=== PATIENT | male | born 1955 | race Caucasian/White ===

== ENCOUNTER 2020-01-09 23:33 | Emergency (ER) | payer OTHER ==
[2020-01-10 00:19] LABS: Absolute Lymphocytes (CBC) 2.1 K/uL (0.7-4.9); Basophils % 0.3 % (0-1.3); Hematocrit 44.9 % (39.6-49.0); Lymphocytes % 30.6 % (15.3-44.8); MPV 8.6 fL (7.6-11.3)
[2020-01-10 00:20] LABS: Protime INR 0.89
[2020-01-10 00:33] LABS: ALT/SGPT 54 U/L (12-78); AST/SGOT 25 U/L (15-37); Albumin 4.1 g/dL (3.4-5.0); Alkaline Phosphatase 109 U/L (45-117); BUN Blood Urea Nitrogen 18 mg/dL (7-18); Bicarbonate 29 mmol/L (21-32); Bilirubin Direct 0.1 mg/dL (0-0.2); Bilirubin Total 0.4 mg/dL (0.2-1.0); Glucose Level 145 mg/dL (74-106); Magnesium 2.1 mg/dL (1.8-2.4); NT PRO-BNP 38 pg/mL (<125); Potassium 3.4 mmol/L (3.5-5.1); Protein, Total 7.5 g/dL (6.4-8.2); Sodium Level 141 mmol/L (136-145); Troponin (Emerg Dept Use Only) < 0.02 ng/mL (0.0-0.045)
[2020-01-10] MEDS ORDERED: ASPIRIN 81 MG CHEWABLE TABLET ONE (01:14)
--- NOTE | 2020-01-10 01:27 | EDPHYS ---
Physician Documentation [facility] Name: Dao Staples Age: 64 yrs Sex: Male : 1955 Arrival Date: 01/09/2020 Time: 23:37 Bed 8 Private MD: ED Physician Romeo Torres HPI: 01/10 00:10 This 64 yrs old Male presents to ER via Ambulatory with complaints of Chest cp Pain. 00:10 The patient or guardian reports chest pain that is located primarily in the anterior cp chest wall. 00:10 Onset: 3 week(s) ago, and became worse 5 day(s) ago. cp 00:10 The pain does not radiate. Associated signs and symptoms: Pertinent positives: cp palpitations, shortness of breath, Pertinent negatives: diaphoresis, dizziness, lower extremity pain, lower extremity swelling, recent travel, syncope. 00:10 The chest pain is described as tightness. cp 00:10 Duration: The patient or guardian reports multiple episodes, that wax and wane. cp Severity of pain: in the emergency department the pain has resolved. Historical: - Allergies: 01/09 23:43 No Known Allergies; ca1 - Home Meds: 23:43 amlodipine 5 mg tab 1 tab once daily [Active]; losartan-hydrochlorothiazide 100-25 mg ca1 oral tab 1 tab once daily [Active]; pravastatin 80 mg oral tab 1 tab once daily [Active]; - PMHx: 23:43 Hypertension; Hyperlipidemia; ca1 - PSHx: 23:43 Back surgery; ca1 - Immunization history:: Adult Immunizations up to date, Pneumococcal vaccine is not up to date, Flu vaccine is not up to date. - Coronavirus screen:: The patient has NOT traveled to [place] in the past 14 days. The patient has NOT had contact with known/suspected case of Coronavirus?. - Social history:: Smoking status: Patient denies any tobacco usage or history of. - Ebola Screening: : Patient negative for fever greater than or equal to 101.5 degrees Fahrenheit, and additional compatible Ebola Virus Disease symptoms Patient denies exposure to infectious person Patient denies travel to an Ebola-affected area in the 21 days before illness onset No symptoms or risks identified at this time. ROS: 01/10 00:15 Constitutional: Negative for body aches, chills, fever, poor PO intake. cp 00:15 Eyes: Negative for injury, pain, redness, and discharge. cp 00:15 ENT: Negative for drainage from ear(s), ear pain, sore throat, difficulty swallowing, difficulty handling secretions. 00:15 Cardiovascular: Positive for chest pain, palpitations, Negative for edema. 00:15 Respiratory: Positive for cough, shortness of breath, Negative for wheezing. 00:15 Abdomen/GI: Negative for abdominal pain, vomiting, diarrhea, constipation. 00:15 Back: Negative for pain at rest, pain with movement, radiated pain. 00:15 Skin: Negative for rash. 00:15 Neuro: Negative for altered mental status, headache, syncope, weakness. 00:15 All other systems are negative. Exam: 00:12 ECG was reviewed by the Attending Physician. cp 00:20 Constitutional: The patient appears in no acute distress, alert, awake, cp non-diaphoretic, non-toxic, well developed, well nourished. 00:20 Head/Face: Normocephalic, atraumatic. cp 00:20 Eyes: Periorbital structures: appear normal, Conjunctiva: normal, no exudate, no injection, Sclera: no appreciated abnormality, Lids and lashes: appear normal, bilaterally. 00:20 ENT: External ear(s): are unremarkable, Nose: is normal, Mouth: Lips: moist, Oral mucosa: pink and intact, moist, Posterior pharynx: is normal, airway is patent, no erythema, no exudate. 00:20 Chest/axilla: Inspection: normal, Palpation: is normal, no crepitus, no tenderness. 00:20 Cardiovascular: Rate: normal, Rhythm: regular, Pulses: Pulses are 2+ in right radial artery and left radial artery. Heart sounds: murmur, not appreciated, rub, not appreciated, gallop, not appreciated, Edema: is not appreciated, JVD: is not appreciated. 00:20 Respiratory: the patient does not display signs of respiratory distress, Respirations: normal, no use of accessory muscles, no retractions, labored breathing, is not present, Breath sounds: are clear throughout, no decreased breath sounds. 00:20 Abdomen/GI: Inspection: abdomen appears normal, Palpation: abdomen is soft and non-tender, in all quadrants. 00:20 Back: pain, is absent, ROM is normal. 00:20 Skin: no rash present. 00:20 Neuro: Orientation: to person, place \T\ time. Mentation: is normal, Cerebellar function: is grossly normal, Motor: moves all fours, strength is normal, Sensation: is normal. Vital Signs: 01/09 23:43 BP 164 / 92; Pulse 69; Resp 18 S; Temp 97.9(TE); Pulse Ox 98% on R/A; Weight 107.5 kg ca1 (R); Height 6 ft. 2 in. (187.96 cm) (R); Pain /10; 01/10 00:00 BP 138 / 79; Pulse 65; Resp 16; Pulse Ox 95% on R/A; rv 00:30 BP 128 / 71; Pulse 66; Resp 16; Pulse Ox 95% on R/A; rv 01:00 BP 134 / 79; Pulse 67; Resp 16; Pulse Ox 96% on R/A; rv 01/09 23:43 Body Mass Index 30.43 (107.50 kg, 187.96 cm) ca1 MDM: 00:07 Patient medically screened. cp 01:20 The patient was given aspirin in the Emergency Department. cp 01:20 Differential diagnosis: acute myocardial infarction, coronary artery disease chest wall cp pain, pulmonary embolus, stable angina, thoracic aortic disection, unstable angina. Data reviewed: vital signs, nurses notes, lab test result(s), EKG, radiologic studies, plain films. 01:24 Physician consultation: Kiel Ignacio MD was called at 01:24, was contacted at 01:24, cp regarding admission, to the telemetry unit. patient's condition. 01/09 23:58 Order name: Basic Metabolic Panel rv 01/09 23:58 Order name: CBC with Diff 01/09 23:58 Order name: LFT's rv 01/09 23:58 Order name: Magnesium 01/09 23:58 Order name: NT PRO-BNP rv 01/09 23:58 Order name: PT-INR rv 01/09 23:58 Order name: Troponin (emerg Dept Use Only) rv 01/10 00:24 Order name: Protime (+INR); Complete Time: 00:55 EDMS 01/10 00:25 Order name: CBC with Automated Diff; Complete Time: 00:55 EDMS 01/10 00:34 Order name: Basic Metabolic Panel; Complete Time: 00:55 EDMS 01/10 00:56 Interpretation: Normal except: K 3.4; GLUC 145; GFR 89. cp 01/10 00:34 Order name: Liver (Hepatic) Function; Complete Time: 00:55 EDMS 01/10 00:34 Order name: Troponin (Emerg Dept Use Only); Complete Time: 00:55 EDMS 01/10 00:34 Order name: NT PRO-BNP; Complete Time: 00:55 EDMS 01/10 00:34 Order name: Magnesium; Complete Time: 00:55 EDUT 01/09 23:58 Order name: XRAY Chest (1 view) rv 01/09 23:58 Order name: EKG; Complete Time: 23:59 rv 01/09 23:58 Order name: Cardiac monitoring; Complete Time: 23:59 rv 01/09 23:58 Order name: EKG - Nurse/Tech; Complete Time: 23:59 rv 01/09 23:58 Order name: IV Saline Lock; Complete Time: 23:59 rv 01/09 23:58 Order name: Labs collected and sent; Complete Time: 23:59 rv 01/09 23:58 Order name: O2 Per Protocol; Complete Time: 23:59 rv 01/09 23:58 Order name: O2 Sat Monitoring; Complete Time: 23:59 rv EC:12 Rate is 65 beats/min. Rhythm is regular. HI interval is normal. QRS interval is normal. cp QT interval is normal. Interpreted by me. Reviewed by me. Administered Medications: 01:12 Drug: Aspirin Chewable Tablet 324 mg Route: PO; rv 01:50 Follow up: Response: No adverse reaction rv Disposition: 01/11 00:00 Co-signature as Attending Physician, Romeo Torres MD I agree with the assessment and [facility] plan of care. Disposition: 01/10/20 01:45 Patient has left against medical advice. Impression: Chest pain, unspecified. - Patients states they are going to Home. - Condition is Stable. - Discharge Instructions: Nonspecific Chest Pain, Aspirin and Your Heart. Follow up: Kiel Ignacio MD; When: 2 - 3 days; Reason: Recheck today's complaints. - Problem is new. - Symptoms are unchanged. Signatures: Dispatcher [employer] Romeo Valenzuela MD MD cha Page, Corey, PA PA cp Carli Ocampo, RN RN cg Zhang Garcia, RN RN rv Sultana Cooper, RN RN ca1 Corrections: (The following items were deleted from the chart) 01/10 01:38 01:26 Hospitalization Ordered by Kiel Ignacio MD for Observation. Preliminary diagnosis cg is Chest pain, unspecified. Bed requested for Telemetry/MedSurg (observation). Status is Observation. Condition is Stable. Problem is new. Symptoms have improved. cp 01:38 01:38 01/10/2020 01:26 Hospitalization Ordered by Kiel Ignacio MD for Observation. cg Preliminary diagnosis is Chest pain, unspecified. Bed requested for Telemetry/MedSurg (observation). Status is Observation. Condition is Stable. Problem is new. Symptoms have improved. cg 01:50 01:45 01/10/2020 01:45 Patients has left against medical advice. Impression: Chest rv pain, unspecified. Patient states they are going to Home. Condition is Stable. Follow up: Kiel Ignacio; When: 2 - 3 days; Reason: Recheck today's complaints. Problem is new. Symptoms are unchanged. cp
--- NOTE | 2020-01-10 01:27 | ER ---
Nurse's Notes [facility] Name: Dao Staples Age: 64 yrs Sex: Male : 1955 Arrival Date: 01/09/2020 Time: 23:37 Bed 8 Private MD: Diagnosis: Chest pain, unspecified Presentation: 01/09 23:39 Presenting complaint: Patient states: chest pain and tightness x 3 weeks, worst in the ca1 last 5 days. Denies previous history of heart problems. Reports cough and SOB on exertion. Denies fever. Transition of care: patient was not received from another setting of care. Onset of symptoms was January 09, 2020. Risk Assessment: Do you want to hurt yourself or someone else? Patient reports no desire to harm self or others. Initial Sepsis Screen: Does the patient meet any 2 criteria? No. Patient's initial sepsis screen is negative. Does the patient have a suspected source of infection? No. Patient's initial sepsis screen is negative. Care prior to arrival: None. 23:39 Method Of Arrival: Ambulatory ca1 23:39 Acuity: SOUTH 3 ca1 Historical: - Allergies: 23:43 No Known Allergies; ca1 - Home Meds: 23:43 amlodipine 5 mg tab 1 tab once daily [Active]; losartan-hydrochlorothiazide 100-25 mg ca1 oral tab 1 tab once daily [Active]; pravastatin 80 mg oral tab 1 tab once daily [Active]; - PMHx: 23:43 Hypertension; Hyperlipidemia; ca1 - PSHx: 23:43 Back surgery; ca1 - Immunization history:: Adult Immunizations up to date, Pneumococcal vaccine is not up to date, Flu vaccine is not up to date. - Coronavirus screen:: The patient has NOT traveled to [place] in the past 14 days. The patient has NOT had contact with known/suspected case of Coronavirus?. - Social history:: Smoking status: Patient denies any tobacco usage or history of. - Ebola Screening: : Patient negative for fever greater than or equal to 101.5 degrees Fahrenheit, and additional compatible Ebola Virus Disease symptoms Patient denies exposure to infectious person Patient denies travel to an Ebola-affected area in the 21 days before illness onset No symptoms or risks identified at this time. Screenin/22 00:01 Abuse screen: Denies threats or abuse. Denies injuries from another. Nutritional rv screening: No deficits noted. Tuberculosis screening: No symptoms or risk factors identified. Fall Risk None identified. Assessment: 00:00 General: Appears in no apparent distress. General: Appears comfortable, Behavior is rv calm, cooperative. Pain: Complains of pain in anterior aspect of right upper chest Pain does not radiate. Pain currently is 4 out of 10 on a pain scale. Quality of pain is described as pressure, Pain began THREE WEEKS. Neuro: Level of Consciousness is awake, alert, obeys commands, Oriented to person, place, time, situation. Cardiovascular: Patient's skin is warm and dry. Rhythm is sinus rhythm Chest pain is described as mild, quality is pressure, is located in right anterior chest wall began THREE WEEKS. Respiratory: Airway is patent Breath sounds are clear bilaterally. Derm: Skin is intact. 01:00 Reassessment: Patient appears in no apparent distress at this time. Patient and/or rv family updated on plan of care and expected duration. Pain level reassessed. Patient is alert, oriented x 3, equal unlabored respirations, skin warm/dry/pink. CHEST PAIN IS DECREASING. 01:48 Reassessment: PATIENT WALKED OUT OF THE ROOM AFTER BEING TOLD THAT HE NEEDS TO BE rv ADMITTED. REFUSED TO HAVE THE IV TAKEN OUT. 01:59 Reassessment: ATTEMPTED TO REACH THE PATIENT THRU TWO DIFFERENT HOME NUMBERS AND ONE rv NEXT OF KIN BUT FAILED TO TALK TO SOMEONE. UNABLE TO CONFIRM IF THE PATIENT HAS TAKEN HIS IV PRIOR TO LEAVING THE FACILITY. Vital Signs: 01/09 23:43 BP 164 / 92; Pulse 69; Resp 18 S; Temp 97.9(TE); Pulse Ox 98% on R/A; Weight 107.5 kg ca1 (R); Height 6 ft. 2 in. (187.96 cm) (R); Pain 2/10; 01/10 00:00 BP 138 / 79; Pulse 65; Resp 16; Pulse Ox 95% on R/A; rv 00:30 BP 128 / 71; Pulse 66; Resp 16; Pulse Ox 95% on R/A; rv 01:00 BP 134 / 79; Pulse 67; Resp 16; Pulse Ox 96% on R/A; rv 01/09 23:43 Body Mass Index 30.43 (107.50 kg, 187.96 cm) ca1 ED Course: 01/09 23:37 Patient arrived in ED. [id number] 23:41 Triage completed. ca1 23:43 Arm band placed on right wrist. ca1 23:45 Zhang Garcia, RN is Primary Nurse. rv 23:59 No provider procedures requiring assistance completed. Initial lab(s) drawn, by me, rv sent to lab. Inserted saline lock: 18 gauge in right forearm, using aseptic technique. Blood collected. Patient maintains SpO2 saturation greater than 95% on room air. 01/10 00:01 Patient has correct armband on for positive identification. monitor technician on. Pulse rv ox on. NIBP on. 00:05 Romeo Ramirez PA is PHCP. cp 00:05 Romeo Torres MD is Attending Physician. cp 01:26 Kiel Ignacio MD is Hospitalizing Provider. cp 01:45 Kiel Ignacio MD is Referral Physician. cp 02:00 UNABLE TO CONFIRM IF THE PATIENT TOOK HIS IV PRIOR LEAVING THE ROOM/FACILITY. rv Administered Medications: 01:12 Drug: Aspirin Chewable Tablet 324 mg Route: PO; rv 01:50 Follow up: Response: No adverse reaction rv Outcome: 01:26 Decision to Hospitalize by Provider. cp 01:48 AMA Left before signing form. rv 01:48 Condition: unchanged 01:50 Patient left the ED. rv Signatures: Romeo Ramirez PA PA cp Vicente, Ronaldo, RN RN rv Sultana Cooper RN RN [facility] CallahanStephany hwang [facility]
[2020-01-10 04:29] VITALS: TEMP 97.9
[2020-01-10 04:40] VITALS: BP 134/79; O2SAT 96
--- NOTE | 2020-01-10 08:38 | RAD REPORT ---
EXAM DESCRIPTION: RAD - Chest Single View - 01/10/2020 12:12 am CLINICAL HISTORY: CHEST PAIN COMPARISON: Chest Pa And Lat (2 Views) dated 09/17/2018 TECHNIQUE: AP portable chest image was obtained 01/10/2020 12:12 am . FINDINGS: Lung volumes are reduced from the comparison study. This accentuates mid and lower lung fi eld markings and central vasculature. Significant degree of failure or volume overload not suspected. Heart and vasculature are normal. No measurable pleural effusion and no pneumothorax. No acute bony abnormality seen. No acute aortic findings suspected. IMPRESSION: No acute cardiopulmonary process. Shallow inspiration accentuates chest findings potentially masking very early stages of failure or vo lume overload.
--- NOTE | 2020-01-11 07:47 | EKG ---
Test Date: 2020-01-09 Test Time: 23:48:34 Hr Intern: RV MEASUREMENT RESULTS: Intervals: Rate: 65 UT: 174 QRSD: 90 QT: 412 QTc: 428 [place]: P: 22 UT: 174 QRS: -33 T: 40 INTERPRETIVE STATEMENTS: Normal sinus rhythm Left axis deviation Inferior infarct, age undetermined Abnormal ECG Compared to ECG 12/07/2008 07:55:31 Left-axis deviation now present Myocardial infarct finding now present Sinus bradycardia no longer present Electronically Signed On 01-11-20 07:45:06 [employer] by Luis Casiano
== END 2020-01-10 01:50 | disposition left against medical advice (07) ==
LOC: ER 23:33
DX: R07.9 Chest pain, unspecified (principal); I10 Essential (primary) hypertension; E78.5 Hyperlipidemia, unspecified
CPT/HCPCS: 36415; 71045; 80048; 80076; 83735; 83880; 84484; 85025; 85610; 93005; 99285